=== PATIENT | female | born 1980 | race Caucasian/White ===

== ENCOUNTER 2017-10-19 14:08 | Emergency (ER) | payer OTHER ==
[~2017-10-19] VITALS: Ht 165.1 cm; Wt 82.0 kg
[~2017-10-19 14:08] MED LIST: ALPR.5 PO; BIOT1SUB SL
[2017-10-19 14:19] VITALS: BP 166/76; PULSE 83; RESP 16; TEMP 98.3; O2SAT 99
[2017-10-19 14:33] VITALS: BP 168/85; PULSE 82; RESP 18; O2SAT 100
[2017-10-19] MEDS ORDERED: SODIUM CHLORIDE 0.9% FLUSH 10 ML FLUSH IV FLUSH PRN (14:45)
--- NOTE | 2017-10-19 15:38 | PD ---
HPI Chief Complaint: Abdominal Pain Time Seen by Provider: 14:32 Travel History International Travel<30 days: No Contact w/Intl Traveler<30days: No Traveled to known affect area: No History of Present Illness HPI Patient is a 37-year-old female presenting to the emergency department for evaluation of left lower quadrant abdominal pain. Patient states it started approximately 6 weeks ago. Initially was intermittent and occasional, not necessarily exacerbated or relieved by anything. For the last 3 days pain has been persistent and constant. She reports her pain is 8 out of 10 at its worst and is squeezing in nature. She denies any nausea, vomiting, fevers. She does report today she had more frequent stools but they were not watery or explosive. Patient has a history of gastric sleeve 2 years ago, 3 sections, a uterine ablation and bilateral tubal ligation. Symptom onset was gradual, symptoms are currently moderate in nature. There are no alleviating factors. PFSH Past Medical History Anxiety: Yes Musculoskeletal: Yes (herniated disc in the neck and lower back) Psychiatric: No Reproductive: No Respiratory: No Integumentary: Yes (Vitiligo) Thyroid Disease: No ?: Not : 3 Para: 3 Tubal Ligation: Yes Past Surgical History AICD: No Section: Yes (3) Gynecologic Surgery: Yes (x 3 c-sections endometrial ablation) Joint Replacement: No Pacemaker: No Other Surgery: Yes (gastric sleeve 2014) Social History Alcohol Use: Yes (OCCAS) Tobacco Use: No Substance Use: No Allergies-Medications (Allergen,Severity, Reaction): Coded Allergies: No Known Allergies (Verified Adverse Reaction, Unknown, 10/19/17) Reported Meds & Prescriptions Reported Meds & Active Scripts Active Reported Xanax (Alprazolam) 0.5 Mg Tab 0.5 Mg PO Q6H PRN Review of Systems Except as stated in HPI: all other systems reviewed are Neg Cardiovascular: No: Chest Pain or Discomfort Respiratory: No: Shortness of Breath Gastrointestinal: Positive: Abdominal Pain, No: Nausea, Vomiting, Diarrhea, Indigestion, Loss of Appetite Genitourinary: No: Dysuria Musculoskeletal: No: Myalgias Neurologic: No: Weakness, Dizziness, Syncope Physical Exam Narrative GENERAL: Well-developed, well-nourished, alert female. Presenting in no acute distress. SKIN: Warm and dry. HEAD: Atraumatic. Normocephalic. EYES: Pupils equal and round. No scleral icterus. No injection or drainage. ENT: No nasal bleeding or discharge. Mucous membranes pink and moist. NECK: Trachea midline. No JVD. CARDIOVASCULAR: Regular rate and rhythm. RESPIRATORY: No accessory muscle use. Clear to auscultation. Breath sounds equal bilaterally. GASTROINTESTINAL: Abdomen soft, mildly tender in left lower quadrant, nondistended. Hepatic and splenic margins not palpable. Positive bowel sounds, no rebound, no guarding MUSCULOSKELETAL: Extremities without clubbing, cyanosis, or edema. No obvious deformities. NEUROLOGICAL: Awake and alert. No obvious cranial nerve deficits. Motor grossly within normal limits. Five out of 5 muscle strength in the arms and legs. Normal speech. PSYCHIATRIC: Appropriate mood and affect; insight and judgment normal. Data Data Last Documented VS Vital Signs Date Time Temp Pulse Resp B/P (MAP) Pulse Ox O2 Delivery O2 Flow Rate FiO2 10/19/17 15:48 94 22 129/75 (93) 100 Room Air 10/19/17 14:19 98.3 Orders Orders Complete Blood Count With Diff (10/19/17 14:38) Comprehensive Metabolic Panel (10/19/17 14:38) Lipase (10/19/17 14:38) Urinalysis - C+S If Indicated (10/19/17 14:38) Iv Access Insert/Monitor (10/19/17 14:38) Ecg Monitoring (10/19/17 14:38) Oximetry (10/19/17 14:38) NPO (10/19/17 14:38) Sodium Chloride 0.9% Flush (Ns Flush) (10/19/17 14:45) Ct Abd/Pel W Iv Contrast(Rout) (10/19/17 ) Iohexol 350 Inj (Omnipaque 350 Inj) (10/19/17 15:50) Ketorolac Inj (Toradol Inj) (10/19/17 16:30) Labs Laboratory Tests Test 10/19/17 14:40 10/19/17 14:50 Urine Color YELLOW Urine Turbidity CLEAR Urine pH 7.0 Urine Specific [place] 1.016 Urine Protein NEG mg/dL Urine Glucose (UA) NEG mg/dL Urine Ketones NEG mg/dL Urine Occult Blood NEG Urine Nitrite NEG Urine Bilirubin NEG Urine Urobilinogen LESS THAN 2.0 MG/DL Urine Leukocyte Esterase NEG Urine RBC 1 /hpf Urine WBC 2 /hpf Urine Squamous Epithelial Cells 2 /hpf Urine Amorphous Sediment RARE Urine Bacteria OCC /hpf Urine Mucus FEW /lpf Microscopic Urinalysis Comment CULT NOT INDICATED White Blood Count 7.6 TH/MM3 Red Blood Count 4.46 MIL/MM3 Hemoglobin 13.2 GM/DL Hematocrit 39.7 % Mean Corpuscular Volume 88.9 FL Mean Corpuscular Hemoglobin 29.7 PG Mean Corpuscular Hemoglobin Concent 33.4 % Red Cell Distribution Width 13.8 % Platelet Count 267 TH/MM3 Mean Platelet Volume 8.7 FL Neutrophils (%) (Auto) 66.0 % Lymphocytes (%) (Auto) 22.7 % Monocytes (%) (Auto) 6.7 % Eosinophils (%) (Auto) 4.3 % Basophils (%) (Auto) 0.3 % Neutrophils # (Auto) 5.0 TH/MM3 Lymphocytes # (Auto) 1.7 TH/MM3 Monocytes # (Auto) 0.5 TH/MM3 Eosinophils # (Auto) 0.3 TH/MM3 Basophils # (Auto) 0.0 TH/MM3 CBC Comment DIFF FINAL Differential Comment Blood Urea Nitrogen 9 MG/DL Creatinine 0.77 MG/DL Random Glucose 75 MG/DL Total Protein 8.0 GM/DL Albumin 4.1 GM/DL Calcium Level 8.8 MG/DL Alkaline Phosphatase 39 U/L Aspartate Amino Transf (AST/SGOT) 32 U/L Alanine Aminotransferase (ALT/SGPT) 23 U/L Total Bilirubin 0.7 MG/DL Sodium Level 139 MEQ/L Potassium Level 4.9 MEQ/L Chloride Level 107 MEQ/L Carbon Dioxide Level 26.6 MEQ/L Anion Gap 5 MEQ/L Estimat Glomerular Filtration Rate 85 ML/MIN Lipase 113 U/L [facility] Medical Decision Making Medical Screen Exam Complete: Yes Emergency Medical Condition: Yes Interpretation(s) Last Impressions Abdomen/Pelvis CT 10/19/17 0000 Signed Impressions: Service Date/Time: Thursday, October 19, 2017 15:34 - CONCLUSION: Adnexal cyst one point centimeters on the right. No free fluid. History of gastric bypass No other abnormality appreciated. Mahin Noguera MD FACR Laboratory Tests Test 10/19/17 14:40 10/19/17 14:50 Urine Color YELLOW Urine Turbidity CLEAR Urine pH 7.0 Urine Specific [place] 1.016 Urine Protein NEG mg/dL Urine Glucose (UA) NEG mg/dL Urine Ketones NEG mg/dL Urine Occult Blood NEG Urine Nitrite NEG Urine Bilirubin NEG Urine Urobilinogen LESS THAN 2.0 MG/DL Urine Leukocyte Esterase NEG Urine RBC 1 /hpf Urine WBC 2 /hpf Urine Squamous Epithelial Cells 2 /hpf Urine Amorphous Sediment RARE Urine Bacteria OCC /hpf Urine Mucus FEW /lpf Microscopic Urinalysis Comment CULT NOT INDICATED White Blood Count 7.6 TH/MM3 Red Blood Count 4.46 MIL/MM3 Hemoglobin 13.2 GM/DL Hematocrit 39.7 % Mean Corpuscular Volume 88.9 FL Mean Corpuscular Hemoglobin 29.7 PG Mean Corpuscular Hemoglobin Concent 33.4 % Red Cell Distribution Width 13.8 % Platelet Count 267 TH/MM3 Mean Platelet Volume 8.7 FL Neutrophils (%) (Auto) 66.0 % Lymphocytes (%) (Auto) 22.7 % Monocytes (%) (Auto) 6.7 % Eosinophils (%) (Auto) 4.3 % Basophils (%) (Auto) 0.3 % Neutrophils # (Auto) 5.0 TH/MM3 Lymphocytes # (Auto) 1.7 TH/MM3 Monocytes # (Auto) 0.5 TH/MM3 Eosinophils # (Auto) 0.3 TH/MM3 Basophils # (Auto) 0.0 TH/MM3 CBC Comment DIFF FINAL Differential Comment Blood Urea Nitrogen 9 MG/DL Creatinine 0.77 MG/DL Random Glucose 75 MG/DL Total Protein 8.0 GM/DL Albumin 4.1 GM/DL Calcium Level 8.8 MG/DL Alkaline Phosphatase 39 U/L Aspartate Amino Transf (AST/SGOT) 32 U/L Alanine Aminotransferase (ALT/SGPT) 23 U/L Total Bilirubin 0.7 MG/DL Sodium Level 139 MEQ/L Potassium Level 4.9 MEQ/L Chloride Level 107 MEQ/L Carbon Dioxide Level 26.6 MEQ/L Anion Gap 5 MEQ/L Estimat Glomerular Filtration Rate 85 ML/MIN Lipase 113 U/L Vital Signs Date Time Temp Pulse Resp B/P (MAP) Pulse Ox O2 Delivery O2 Flow Rate FiO2 10/19/17 14:33 82 18 168/85 (112) 100 Room Air 10/19/17 14:33 20 10/19/17 14:19 98.3 83 16 166/76 (106) 99 Differential Diagnosis Diverticulitis versus adhesions versus ovarian cyst versus ovarian torsion versus muscle strain versus other Narrative Course Patient is a 37-year-old female presenting for evaluation of left lower quadrant abdominal pain. Patient's vital signs are stable, she is well- appearing. Labs and imaging ordered and pending. Labs reviewed, no acute findings identified. CT scan of the abdomen and pelvis shows a right adnexal cyst and an endometrial cyst. CT was otherwise unremarkable. Patient was advised on findings, she was reassured. Discussed with patient the possibility of a ruptured left ovarian cyst causing her pain. She will be given dose of Toradol now, she cannot take nsaid's due to gastric bypass so she will be given a prescription for Tylenol 3. She is encouraged to follow-up with her primary doctor in [place]. She was encouraged to return to emergency department for any new or worsening symptoms. She verbalized understanding of these instructions. Patient stable for discharge. Diagnosis Primary Impression: Abdominal pain Qualified Codes: R10.32 - Left lower quadrant pain Referrals: Hvac Engineering Technician Primary Care Physician Patient Instructions: Abdominal Pain (ED), General Instructions Additional Instructions: Follow-up with your primary doctor Follow-up with her telecom field technician Take medication as needed as directed for pain Apply warm compress to affected area as needed Do not drive or operate machinery or taking narcotic pain medication Return to emergency department for any new worsening symptoms Med/Other Pt SpecificInfo: Prescription(s) given Scripts Acetaminophen-Codeine (Tylenol-Codeine #3) 300-30 mg Tab 1 TAB PO Q4H Y for PAIN, #12 TAB 0 Refills Prov: May Chavarria 10/19/17 Disposition: 01 DISCHARGE HOME Condition: Stable May Chavarria Oct 19, 2017 15:38
[2017-10-19 15:40] LABS: AMORPHOUS SEDIMENT, URINE RARE; BACTERIA, URINE OCC /hpf; BILIRUBIN, URINE NEG (NEG); BLOOD, URINE NEG (NEG); GLUCOSE,URINE NEG (NEG); KETONE, URINE NEG (NEG); MUCUS URINE FEW /lpf (OCC); NITRITE,URINE NEG (NEG); SQUAMOUS EPITHELIAL CELL URINE 2 /hpf (0-5); URINE COLOR YELLOW (YELLW/STRAW); URINE LEUKOCYTE ESTERASE NEG (NEG)
[2017-10-19 15:46] LABS: BASOPHIL % 0.3 % (0.0-2.0); EOSINOPHIL # 0.3 TH/MM3 (0-0.4); EOSINOPHIL % 4.3 % (0.0-4.0); HEMATOCRIT 39.7 % (35.0-46.0); HEMOGLOBIN 13.2 GM/DL (11.6-15.3); LYMPH % 22.7 % (9.0-44.0); LYMPHOCYTE # 1.7 TH/MM3 (1.0-4.8); MEAN CELL VOLUME 88.9 FL (80.0-100.0); MEAN CORPUSCULAR HEMOGLOBIN 29.7 PG (27.0-34.0); MEAN CORPUSCULAR HGB CONC 33.4 % (32.0-36.0); MEAN PLATELET VOLUME 8.7 FL (7.0-11.0); MONO % 6.7 % (0.0-8.0); MONOCYTE # 0.5 TH/MM3 (0-0.9); PLATELET COUNT 267 TH/MM3 (150-450); RED BLOOD COUNT 4.46 MIL/MM3 (4.00-5.30); RED CELL DISTRIBUTION WIDTH 13.8 % (11.6-17.2); WHITE BLOOD COUNT 7.6 TH/MM3 (4.0-11.0)
[2017-10-19 15:48] VITALS: BP 129/75; PULSE 94; RESP 22; O2SAT 100
[2017-10-19] MEDS ORDERED: IOHEXOL 350 MG/ML 10 ML VIAL (for RAD DIAG) IVCONTRAST ONE (15:50)
[2017-10-19 16:00] VITALS: BP 129/80; PULSE 78; RESP 17; O2SAT 99
--- NOTE | 2017-10-19 16:00 | RADRPT ---
EXAM DATE/TIME: 10/19/2017 15:34 [place] COMPARISON: No previous studies available for comparison. INDICATIONS : Lower abdomen pain for one month. IV CONTRAST: 96 cc Omnipaque 350 (iohexol) IV ORAL CONTRAST: No oral contrast ingested. RADIATION DOSE: 11.63 CTDIvol (mGy) MEDICAL HISTORY : None SURGICAL HISTORY : Gastric bypass. section.Tubal ligation. ENCOUNTER: Initial ACUITY: 1 month PAIN SCALE: 5/10 LOCATION: Abdomen TECHNIQUE: Volumetric scanning of the abdomen and pelvis was performed. Using automated exposure control and ad justment of the mA and/or kV according to patient size, radiation dose was kept as low as reasonably achievable to obtain optimal diagnostic quality images. DICOM format image data is available electro nically for review and comparison. FINDINGS: Previous gastric bypass. Lower lungs are clear. Liver, spleen and pancreas unremarkable Symmetrical renal function There is no ascites or adenopathy In the pelvis uterus is prominent with small 1.4 center endometrial cyst present. There is a 1.8 cm cyst. There is no free fluid. Review of bone windows reveals only degenerative changes. CONCLUSION: Adnexal cyst one point centimeters on the right. No free fluid. History of gastric bypass No other abnormality appreciated. Mahin Noguera MD FACR on October 19, 2017 at 15:53 Board Certified Radiologist. This report was verified electronically.
[2017-10-19 16:03] LABS: ALKALINE PHOSPHATASE 39 U/L (45-117); TOTAL BILIRUBIN ADULT 0.7 MG/DL (0.2-1.0)
[2017-10-19 16:08] LABS: ALBUMIN 4.1 GM/DL (3.4-5.0); ALT (GPT) 23 U/L (10-53); AST (GOT) 32 U/L (15-37); BICARBONATE 26.6 MEQ/L (21.0-32.0); BLOOD UREA NITROGEN 9 MG/DL (7-18); CALCIUM 8.8 MG/DL (8.5-10.1); CHLORIDE 107 MEQ/L (98-107); CREATININE 0.77 MG/DL (0.50-1.00); GLOMERULAR FILTRATION RATE 85 ML/MIN (>89); GLUCOSE,RANDOM 75 MG/DL (74-106); SODIUM (NA) 139 MEQ/L (136-145)
[2017-10-19] MEDS ORDERED: KETOROLAC TROMETHAMINE 30 MG/ML (IVP) VIAL IV PUSH ONE (16:30)
[2017-10-19] MEDS ORDERED: TYLETAB34 PO (16:31)
--- NOTE | 2017-10-19 16:33 | PD ---
Data Data Last Documented VS Vital Signs Date Time Temp Pulse Resp B/P (MAP) Pulse Ox O2 Delivery O2 Flow Rate FiO2 10/19/17 15:48 94 22 129/75 (93) 100 Room Air 10/19/17 14:19 98.3 Orders Orders Complete Blood Count With Diff (10/19/17 14:38) Comprehensive Metabolic Panel (10/19/17 14:38) Lipase (10/19/17 14:38) Urinalysis - C+S If Indicated (10/19/17 14:38) Iv Access Insert/Monitor (10/19/17 14:38) Ecg Monitoring (10/19/17 14:38) Oximetry (10/19/17 14:38) NPO (10/19/17 14:38) Sodium Chloride 0.9% Flush (Ns Flush) (10/19/17 14:45) Ct Abd/Pel W Iv Contrast(Rout) (10/19/17 ) Iohexol 350 Inj (Omnipaque 350 Inj) (10/19/17 15:50) Ketorolac Inj (Toradol Inj) (10/19/17 16:30) Ed Discharge Order (10/19/17 16:31) Labs Laboratory Tests Test 10/19/17 14:40 10/19/17 14:50 Urine Color YELLOW Urine Turbidity CLEAR Urine pH 7.0 Urine Specific [place] 1.016 Urine Protein NEG mg/dL Urine Glucose (UA) NEG mg/dL Urine Ketones NEG mg/dL Urine Occult Blood NEG Urine Nitrite NEG Urine Bilirubin NEG Urine Urobilinogen LESS THAN 2.0 MG/DL Urine Leukocyte Esterase NEG Urine RBC 1 /hpf Urine WBC 2 /hpf Urine Squamous Epithelial Cells 2 /hpf Urine Amorphous Sediment RARE Urine Bacteria OCC /hpf Urine Mucus FEW /lpf Microscopic Urinalysis Comment CULT NOT INDICATED White Blood Count 7.6 TH/MM3 Red Blood Count 4.46 MIL/MM3 Hemoglobin 13.2 GM/DL Hematocrit 39.7 % Mean Corpuscular Volume 88.9 FL Mean Corpuscular Hemoglobin 29.7 PG Mean Corpuscular Hemoglobin Concent 33.4 % Red Cell Distribution Width 13.8 % Platelet Count 267 TH/MM3 Mean Platelet Volume 8.7 FL Neutrophils (%) (Auto) 66.0 % Lymphocytes (%) (Auto) 22.7 % Monocytes (%) (Auto) 6.7 % Eosinophils (%) (Auto) 4.3 % Basophils (%) (Auto) 0.3 % Neutrophils # (Auto) 5.0 TH/MM3 Lymphocytes # (Auto) 1.7 TH/MM3 Monocytes # (Auto) 0.5 TH/MM3 Eosinophils # (Auto) 0.3 TH/MM3 Basophils # (Auto) 0.0 TH/MM3 CBC Comment DIFF FINAL Differential Comment Blood Urea Nitrogen 9 MG/DL Creatinine 0.77 MG/DL Random Glucose 75 MG/DL Total Protein 8.0 GM/DL Albumin 4.1 GM/DL Calcium Level 8.8 MG/DL Alkaline Phosphatase 39 U/L Aspartate Amino Transf (AST/SGOT) 32 U/L Alanine Aminotransferase (ALT/SGPT) 23 U/L Total Bilirubin 0.7 MG/DL Sodium Level 139 MEQ/L Potassium Level 4.9 MEQ/L Chloride Level 107 MEQ/L Carbon Dioxide Level 26.6 MEQ/L Anion Gap 5 MEQ/L Estimat Glomerular Filtration Rate 85 ML/MIN Lipase 113 U/L MDM Supervised Visit with AYUSH: Yes Narrative Course The history, exam, and medical decision-making in the associated mid-level provider note were completed with my assistance. I reviewed and agree with the findings presented. I attest that I had a [id number] encounter with the patient on the same day, and personally performed and documented my assessment and findings in the medical record. *My assessment and Findings: 37-year-old woman with lower abdominal pain, ongoing for some time, worse over the past couple days, significant lower abdominal tenderness. History of endometrial ablation. No vaginal discharge or symptoms. She does have a little bit of dark colored urine or dysuria. CT scan negative except for small cyst. Recommend outpatient follow-up. Diagnosis Primary Impression: Abdominal pain Qualified Codes: R10.32 - Left lower quadrant pain Referrals: Pipefitter Helper Primary Care Physician Patient Instructions: General Instructions, Abdominal Pain (ED) Additional Instruction: Follow-up with your primary doctor Follow-up with her park interpretive specialist Take medication as needed as directed for pain Apply warm compress to affected area as needed Do not drive or operate machinery or taking narcotic pain medication Return to emergency department for any new worsening symptoms Scripts Acetaminophen-Codeine (Tylenol-Codeine #3) 300-30 mg Tab 1 TAB PO Q4H Y for PAIN, #12 TAB 0 Refills Prov: May Chavarria 10/19/17 Disposition: 01 DISCHARGE HOME Condition: Stable Edgar Lozano MD Oct 19, 2017 16:33
== END 2017-10-19 17:15 | disposition home or self-care (01) ==
LOC: NEPE 14:08
DX: R10.32 Left lower quadrant pain (principal)
CPT/HCPCS: 74177; 80053; 81001; 83690; 85025; 96374; 99285; J1885; Q9967